=== PATIENT | female | born 1985 | race Caucasian/White ===

== ENCOUNTER 2016-08-05 19:00 | Inpatient (IN) | payer BC ==
[2016-08-05] MEDS ORDERED: OBEPIDURAL* 250 ML ONE (20:20)
[2016-08-05 20:29] LABS: Hematocrit 35 % (35-47); Hemoglobin 12.2 g/dl (12.0-16.0); Mean Corpuscular HGB Conc 35 g/dl (31-36); Mean Corpuscular Hemoglobin 31 pg (27-31); Mean Corpuscular Volume 91 fL (80-97); Mean Platelet Volume 9 um3 (7.4-10.4); Red Blood Count 3.91 10^6/ul (4.0-5.4); Red Cell Distribution Width 14 % (10.5-15); White Blood Count 9.8 10^3/ul (3.5-10.8)
[2016-08-05] MEDS ORDERED: Famotidine TAB* 20 MG PO PRN (21:04)
[2016-08-05] MEDS ORDERED: Phenylephrine IV* 40 MCG/ML 10 ML SYRINGE IV PUSH PRN (21:04)
[2016-08-05] MEDS ORDERED: Sodium Citrate/Citric Acid* 15 ML UDC PO PRN (21:04)
[2016-08-05] MEDS ORDERED: OBEPIDURAL* 250 ML EPIDURAL SCH (22:00)
[2016-08-06] MEDS ORDERED: Oxytocin in LR* 20 UNITS/1,000 ML BAG IVPB ONE (00:08)
[2016-08-06] MEDS ORDERED: Glycerin ADULT SUPP PR PRN (03:13)
[2016-08-06] MEDS ORDERED: oxyCODONE/Acetamin 5/325 MG* TAB PO PRN (03:13)
[2016-08-06] MEDS ORDERED: Witch Hazel PAD* JAR TOPICAL PRN (03:13)
[2016-08-06] MEDS ORDERED: Acetaminophen TAB* 325 MG PO PRN (03:13)
[2016-08-06] MEDS ORDERED: Ibuprofen TAB* 600 MG PO PRN (03:13)
[2016-08-06] MEDS ORDERED: Misoprostol TAB* 200 MCG PR ONE (03:13)
[2016-08-06] MEDS ORDERED: Dibucaine 1% 28.35 GM TUBE PR PRN (03:13)
[2016-08-06] MEDS ORDERED: Measles, Mumps,Rubella VACC* 0.5 ML/VIAL SUBCUT ONE (03:13)
[2016-08-06] MEDS ORDERED: Oxytocin in LR* 20 UNITS/1,000 ML BAG IVPB SCH (04:00)
[2016-08-06] MEDS ORDERED: Misoprostol TAB* 200 MCG ONE (04:11)
[2016-08-06] MEDS: Docusate CAP* 100 MG PO SCH ×3 (09:42→19:54)
[2016-08-06] MEDS ORDERED: Cetirizine* 10 MG TAB PO SCH (18:00)
[2016-08-07 08:14] VITALS: BP 109/55
[2016-08-07 08:19] LABS: Hematocrit 33 % (35-47); Hemoglobin 11.4 g/dl (12.0-16.0); Mean Corpuscular HGB Conc 34 g/dl (31-36); Mean Corpuscular Hemoglobin 31 pg (27-31); Mean Corpuscular Volume 91 fL (80-97); Mean Platelet Volume 8 um3 (7.4-10.4); Red Blood Count 3.65 10^6/ul (4.0-5.4); Red Cell Distribution Width 13 % (10.5-15); White Blood Count 12.2 10^3/ul (3.5-10.8)
[2016-08-07] MEDS ORDERED: Ferrous Gluconate TAB* 324 MG TAB PO SCH (09:00)
[2016-08-07] MEDS: Docusate CAP* 100 MG PO SCH (09:04)
== END 2016-08-07 11:28 | disposition home or self-care (01) | DRG 560 ==
LOC: MCHOBOUT 19:00 → MCHOB 19:52
PROVIDERS: ADMIT Midwife; ATTEND Midwife
PROC: 10E0XZZ Delivery of Products of Conception, External Approach (ICD-10-PCS; principal; 2016-08-06)
PROC: 0HQ9XZZ Repair Perineum Skin, External Approach (ICD-10-PCS; 2016-08-06)
DX: O63.0 Prolonged first stage (of labor) (principal); O70.0 First degree perineal laceration during delivery; Z3A.39 39 weeks gestation of pregnancy; Z37.0 Single live birth; Z91.048 Other nonmedicinal substance allergy status
CPT/HCPCS: 36415; 85025; 85027; 86850; 86900; 86901; 90707; A9270-GY